=== PATIENT | male | born 1970 | race Caucasian/White ===

== ENCOUNTER → 2024-10-07 13:55 | Outpatient (REF) | payer OTHER, SELFPAY | LOC: HWRCS 13:55 | PROVIDERS: ATTENDING PHYSICIAN Internal Medicine; FAMILY PHYSICIAN Physician Assistant Medical | DX: I35.1 Nonrheumatic aortic (valve) insufficiency (principal); I10 Essential (primary) hypertension; R94.31 Abnormal electrocardiogram [ECG] [EKG] | CPT/HCPCS: 93306 ==

== ENCOUNTER 2025-05-01 05:55 | Day surgery (SDC) | payer OTHER, SELFPAY ==
[2025-05-01 09:15] VITALS: BP 140/87; BMI 26.6
[2025-05-01 09:26] VITALS: BMI 26.6
[2025-05-01] MEDS: NORMOSOL-R/PLASMALYTE-A 1000 IV (09:38)
[2025-05-01 12:24] VITALS: BP 103/73
[2025-05-01 12:30] VITALS: BP 105/74
[2025-05-01 12:45] VITALS: BP 105/74
== END 2025-05-01 13:10 | disposition home or self-care (01) ==
LOC: SDS 05:55
PROVIDERS: ATTENDING PHYSICIAN Otolaryngology
DX: D17.0 Benign lipomatous neoplasm of skin and subcutaneous tissue of head, face and neck (principal); R22.1 Localized swelling, mass and lump, neck
CPT/HCPCS: 11420; 88304